=== PATIENT | female | born 1990 | race Caucasian/White ===

== ENCOUNTER 2017-09-05 18:11 | Emergency (ER) | payer SELFPAY ==
--- NOTE | 2017-09-05 19:20 | ED ---
Abdominal Pain/Female - HPI Summary HPI Summary: 27 female presents to ED sent over from [facility] for further work up for abdominal pain. Patient states she began having supra-pubic/right sided lower abdominal pain that began last night and has continued throughout the day today. Patient states it is most of the time a dull aching pain however it does worsen and becomes sharp at times. States certain movements does make the pain worse, has not related it to food. Has been able to eat/drink. States the pain is recognizable. Has had similar pain with menstrual cycle and previous copper IUD however no longer has copper IUD and also LMP was one week ago. Patient denies any nausea, vomiting, diarrhea, constipation, urinary symptoms and vaginal symptoms. States she has Amaya IUD and has not had complications with it. Denies . No fever/chills. No other PMHx. No medications. Did try tums earlier today without relief. No other complaints. Denies surgery. Admits to ovarian cysts in the past. - History of Current Complaint Chief Complaint: EDZoranPain Stated Complaint: ABD PAIN Time Seen by Provider: 09/05/17 18:45 Hx Obtained From: Patient Hx Last Menstrual Period: one week ago ?: No Onset/Duration: Sudden Onset, Lasting Hours, Still Present Timing: Constant - with it worsening at times Severity Initially: Moderate Severity Currently: Mild Pain Intensity: 5 Pain Scale Used: 0-10 Numeric Location: Discrete At: RUQ, Suprapubic Radiates: No Character: Sharp, Dull Aggravating Factor(s): Movement Alleviating Factor(s): Nothing Associated Signs and Symptoms: Negative: Fever, Constipation, Blood in Stool, Urinary Symptoms, Decreased Appetite, Vaginal Bleeding, Vaginal Discharge, Nausea, Vomiting, Diarrhea Allergies/Adverse Reactions: Allergies Allergy/AdvReac Type Severity Reaction Status Date / Time No Known Allergies Allergy Verified 09/05/17 18:40 PMH/Surg Hx/FS Hx/Imm Hx Endocrine/Hematology History: Denies: Hx Anticoagulant Therapy, Hx Diabetes Cardiovascular History: Denies: Hx Hypertension Respiratory History: Denies: Hx Asthma - Surgical History Surgery Procedure, Year, and Place: none - Immunization History Immunizations Up to Date: Yes Infectious Disease History: No Infectious Disease History: Denies: Traveled Outside the [place] in Last 30 Days - [place] in NOV - Family History Known Family History: Positive: Other - ovarian cysts - Social History Alcohol Use: Rare Substance Use Type: Reports: None Smoking Status (MU): Never Smoked Tobacco Review of Systems Constitutional: Negative Cardiovascular: Negative Respiratory: Negative Positive: Abdominal Pain Skin: Negative All Other Systems Reviewed And Are Negative: Yes Physical Exam Triage Information Reviewed: Yes Vital Signs On Initial Exam: Initial Vitals Temp Pulse Resp BP Pulse Ox 98.8 F 77 16 112/72 99 09/05/17 18:38 09/05/17 18:38 09/05/17 18:38 09/05/17 18:38 09/05/17 18:38 Vital Signs Reviewed: Yes Appearance: Positive: Well-Appearing, No Pain Distress, Well-Nourished Skin: Positive: Warm, Skin Color Reflects Adequate Perfusion, Dry. Negative: Cold, Cyanosis @, Jaundiced, Erythema @ Head/Face: Positive: Normal Head/Face Inspection Eyes: Positive: Conjunctiva Clear ENT: Positive: Pharynx normal Neck: Positive: Supple, Nontender Respiratory/Lung Sounds: Positive: Clear to Auscultation, Breath Sounds Present. Negative: Rales, Rhonchi, Wheezes Cardiovascular: Positive: Normal, RRR, Pulses are Symmetrical in both Upper and Lower Extremities. Negative: Murmur, Rub Abdomen Description: Positive: No Organomegaly, Soft, Guarding, Other: - some diffuse tenderness along lower abdomen suprapubic/ RLQ, with rebound +. negative rovsings psoas and obtruator. no murphys sign or upper adominal pain with palaption. Negative: Bruit, CVA Tenderness (R), CVA Tenderness (L), Distended, McBurney's Point Tenderness, Pulsatile Mass Bowel Sounds: Positive: Present Pelvic Exam: Positive: external exam normal, speculum exam normal, bimanual exam normal - pain on palpation of right ovary area, no cerv. motion tender, tender adnexa - r. Negative: no masses, active bleeding, cervicitis, discharge , lesions, tender uterus Musculoskeletal: Positive: Normal, Strength/ROM Intact Neurological: Positive: Normal, Sensory/Motor Intact, Alert, Oriented to Person Place, Time, Normal Gait Diagnostics - Vital Signs Vital Signs Temp Pulse Resp BP Pulse Ox 09/05/17 18:38 98.8 F 77 16 112/72 99 - Laboratory Result Diagrams: 09/05/17 19:30 09/05/17 19:30 Lab Statement: Any lab studies that have been ordered have been reviewed, and results considered in the medical decision making process. - Ultrasound No standard instances Ultrasound Interpretation: Positive (See Comments) - pelvic: 1. IUD. 2. 2.4 CM RIGHT OVARIAN HEMORRHAGIC CYST. 3. NO SONOGRAPHIC FEATURES OF TORSION. PLEASE NOTE THAT PARTIAL OR INTERMITTENT TORSION MAY BE SONOGRAPHICALLY NORMAL. appendix:THE APPENDIX IS NOT VISUALIZED. THERE IS NO FREE OR LOCULATED FLUID WITHIN THE RIGHT LOWER QUADRANT Ultrasound Interpretation Completed By: Radiologist Re-Evaluation - Re-Evaluation First Eval Re-Evaluation Time: 20:40 Change: Unchanged - patient still feeling fine without significant pain Abdominal Pain Fem Course/Dx - Course Course Of Treatment: labs obtained and unremarkable other than elevated CRP at 20. Urinalysis obtained and unremarkable. US of appendix obtianed and did not show signs of appendicitis, was not seen. no surrounding fluid. pelvic/transvag US obtained and showed right hemorrhagic 2.3cm ovarian cyst which appears to be the cause of patients pain. pelvic exam normal. affirm obtained pending results although no concerning physical exam findings. Normal vitals and no other significant symptoms other than waxing and waning pain in lower suprapubic/RLQ. Educated on ovarian torsion and worsening signs/sytmpoms, patient is aware, understands and agrees. Ibuprofen and follow up with PCP/OBGYN. No other concerns at this time. - Diagnoses Differential Diagnosis: Positive: Appendicitis, Constipation, Ovarian Cyst Provider Diagnoses: Hemorrhagic cyst of right ovary Discharge - Discharge Plan Condition: Stable Disposition: HOME Patient Education Materials: Ovarian Cyst (ED) Referrals: Non Staff,Doctor [Primary Care Provider] - Additional Instructions: Take ibuprofen to help with pain and inflammation. Heating pad my help soothe discomfort. Follow up with OBGYN/PCP to re-evaluate. Any new, worsening symptoms, as we discussed please return to ED and seek medical attention promptly.
[2017-09-05 19:47] LABS: ABS Basophils 0 10^3/ul (0-0.2); ABS Eosinophils 0 10^3/ul (0-0.6); ABS Lymphocytes 1.3 10^3/ul (1.0-4.8); ABS Monocytes 0.7 10^3/ul (0-0.8); ABS Neutrophils 5.2 10^3/ul (1.5-7.7); ABS Nucleated RBC 0 10^3/ul; Eosinophil % 0.5 % (0-6); Hematocrit 39 % (35-47); Hemoglobin 13.4 g/dl (12.0-16.0); Mean Corpuscular HGB Conc 35 g/dl (31-36); Mean Corpuscular Hemoglobin 31 pg (27-31); Mean Corpuscular Volume 89 fL (80-97); Mean Platelet Volume 8 um3 (7.4-10.4); Nucleated Red Blood Cells % 0; Platelet Count 234 10^3/ul (150-450); Red Blood Count 4.36 10^6/ul (4.0-5.4); Red Cell Distribution Width 15 % (10.5-15); White Blood Count 7.4 10^3/ul (3.5-10.8)
[2017-09-05 20:03] LABS: EGFR Non-African American 94.3 (>60)
--- NOTE | 2017-09-05 20:17 | RAD ---
HISTORY: Right sided pain COMPARISONS: None TECHNIQUE: Multiple transverse and longitudinal ultrasound images were obtained of the pelvis using grayscale, color Doppler, and spectral Doppler imaging using the endovaginal transducer. FINDINGS: UTERUS: The uterus measures 6.5 x 3.4 x 3.7 cm. The uterus is normal in shape, size, contour, and echotexture. ENDOMETRIUM: The endometrial stripe is smooth. The endometrium measures 0.6 cm in thickness. An IUD is noted centrally within the endometrial cavity towards the fundus. CUL-DE-SAC: There is no free fluid within the cul-de-sac. RIGHT OVARY: The right ovary measures 5.8 x 2.4 x 2.5 cm. There is a hyperechoic cystic lesion without internal vascularity measuring 2.4 x 2 x 1.8 cm in size, consistent with a hemorrhagic cyst. Normal arterial and venous waveforms are identifiable within the ovary on spectral Doppler imaging. LEFT OVARY: The left ovary measures 2.5 x 2.1 x 2.3 cm. Normal arterial and venous waveforms are identifiable within the ovary on spectral Doppler imaging. . BLADDER: The bladder is not well visualized. OTHER: None IMPRESSION: 1. IUD. 2. 2.4 CM RIGHT OVARIAN HEMORRHAGIC CYST. 3. NO SONOGRAPHIC FEATURES OF TORSION. PLEASE NOTE THAT PARTIAL OR INTERMITTENT TORSION MAY BE SONOGRAPHICALLY NORMAL.
--- NOTE | 2017-09-05 20:19 | RAD ---
HISTORY: Right-sided pain, rule out appendicitis COMPARISONS: None TECHNIQUE: Multiple transverse and longitudinal ultrasound images were obtained of the right lower quadrant using grayscale and color Doppler imaging. FINDINGS: The appendix is not visualized. There is no free or loculated fluid within the right lower quadrant. IMPRESSION: THE APPENDIX IS NOT VISUALIZED. THERE IS NO FREE OR LOCULATED FLUID WITHIN THE RIGHT LOWER QUADRANT.
[2017-09-05 20:50] LABS: Urine Appearance Cloudy; Urine Blood Negative (Negative); Urine Color Yellow; Urine Ketones Negative (Negative); Urine Protein Negative (Negative); Urine Specific Gravity 1.017 (1.010-1.030); Urine Urobilinogen Negative (Negative)
[2017-09-05] MEDS ORDERED: Ibuprofen TAB* 600 MG PO ONE ×2 (21:06→21:24)
[2017-09-05 21:23] VITALS: BP 100/80
== END 2017-09-05 21:22 | disposition home or self-care (01) ==
LOC: ED 18:11
DX: N83.201 Unspecified ovarian cyst, right side (principal)
CPT/HCPCS: 36415; 76705; 76830; 80053; 81003; 81015; 83605; 83690; 84702; 85025; 86140; 87086; 87480; 87510; 87660; 99283; A9270-GY